=== PATIENT | female | born 1985 | race Caucasian/White ===

== ENCOUNTER 2017-03-22 11:50 | Emergency (ER) | payer OTHER ==
[~2017-03-22] VITALS: Ht 162.6 cm; Wt 71.5 kg
[2017-03-22 11:51] VITALS: BP 113/72; PULSE 97; RESP 18; TEMP 98.2; O2SAT 98
[2017-03-22] MEDS ORDERED: OXYC1TAB35 PO (14:13)
[2017-03-22] MEDS ORDERED: TRAM50 PO (14:13)
--- NOTE | 2017-03-22 14:23 | PD ---
HPI Chief Complaint: Injury Time Seen by Provider: 13:24 Travel History International Travel<30 days: No Contact w/Intl Traveler<30days: No Traveled to known affect area: No History of Present Illness HPI 32-year-old female that presents to the ED for evaluation of possible MRI. Per patient she was sent here by [facility] for evaluation. Apparently patient sustained an injury last week and was seen at [facility]. Patient had x- rays of the hip and knee that show no sign of bony injury but it allergic to have a ligamental injury. Per patient she is having difficulty extending the hip and is currently using crutches and a knee immobilizer. Per patient she has a history of blood clots and she was seen in the [facility] and told to come here for further evaluation and possible MRI for blood clots. Patient states that she's been trying to follow with orthopedic doctor that she's been unsuccessful stating that the doctor that the provided at the other hospital would not see her because of her insurance. She is trying to get to see another one but that won't be able to see her until April. Apparently the facility clinic has been trying to order an MRI for her but he might take a week. Apparently patient has been having some bruising and swelling under were concerned that she might have a DVT. Per patient currently her pain is minimal 2 out of 10 but she did took a Percocet here. She denies any other medical issues. No numbness, tingling, weakness. Per patient she denies this feeling like a blood clot. She is not sure what to do next. PFSH Social History Alcohol Use: No Tobacco Use: No Substance Use: No Allergies-Medications (Allergen,Severity, Reaction): Coded Allergies: Sulfa (Sulfonamide Antibiotics) (Verified Allergy, Severe, RASH, 03/22/17) Reported Meds & Prescriptions Reported Meds & Active Scripts Active Diclofenac Sodium DR (Diclofenac Sodium) 75 Mg Tabdr 75 Mg PO BID PRN Reported Ultram (Tramadol HCl) 50 Mg Tab 50 Mg PO Q6H PRN Oxycodone-Acetaminophen 7.5-325 mg Tab 1 Tab PO Q6H PRN Review of Systems Except as stated in HPI: all other systems reviewed are Neg Physical Exam Narrative GENERAL: SKIN: Warm and dry. HEAD: Atraumatic. Normocephalic. EYES: Pupils equal and round. No scleral icterus. No injection or drainage. ENT: No nasal bleeding or discharge. Mucous membranes pink and moist. NECK: Trachea midline. No JVD. CARDIOVASCULAR: Regular rate and rhythm. RESPIRATORY: No accessory muscle use. Clear to auscultation. Breath sounds equal bilaterally. GASTROINTESTINAL: Abdomen soft, non-tender, nondistended. Hepatic and splenic margins not palpable. MUSCULOSKELETAL: Extremities without clubbing, cyanosis, or edema. No obvious deformities. Full range of motion of the upper extremities with no pain. Full range of motion of left lower extremity. Patient does have a knee immobilizer and also with pain can extend the right leg. Patient has good sensation. Some minimal bruising noted. Most of the pain appears to be in the hip area. Around the tight muscles. NEUROLOGICAL: Awake and alert. No obvious cranial nerve deficits. Motor grossly within normal limits. Five out of 5 muscle strength in the arms and legs. Normal speech. PSYCHIATRIC: Appropriate mood and affect; insight and judgment normal. Data Data Last Documented VS Vital Signs Date Time Temp Pulse Resp B/P (MAP) Pulse Ox O2 Delivery O2 Flow Rate FiO2 03/22/17 11:51 98.2 97 18 113/72 (86) 98 Room Air Orders Orders Us Leg Venous Doppler (03/22/17 ) MDM Medical Decision Making Medical Screen Exam Complete: Yes Emergency Medical Condition: Yes Medical Record Reviewed: Yes Differential Diagnosis Muscle strain versus muscle spasm versus acute on chronic pain versus ligamental injury versus DVT Narrative Course 32-year-old female that presents to the ED for evaluation of possible MRI. Patient was properly examined and was found to have signs and symptoms which appear to be consistent with muscle scleral injury. I do not see any need for emergent MRI at this time. Unclear as to why they sent her here but it seems like she probably was sent here for ultrasound as patient does have pain and bruising on the medial aspect of her right leg and concern for DVT. Did offer MRI but I do not recommended at this time as he does not appear to be emergent. Patient agrees with this. They recommend ultrasound to rule out DVT as this will be more concerning . I think that this may be more related to muscle. Patient agrees with this plan. Ultrasound was ordered. Before patient could have the ultrasound she decided that she needed to go take care of her kids. At this time patient was told that we cannot tell her she has a blood clot. She understands this states that she has to go pick up driver her kids.. She was told to follow with PCP and or orthopedic doctor. At this time I recommend that she follows with orthopedic doctor. She was given prescriptions for anti- inflammatories. She was told to continue taking her medications as prescribed. I gave her a prescription for Zofran to cover for nausea from the Percocet that she was given. Strongly recommend follow with orthopedic doctor to see whether she needs the MRI she might not even needed and all she might require is physical therapy and pain management. Told to follow with PCP. See ED if worsening symptoms. Given name of orthopedic doctors. Diagnosis Primary Impression: Leg pain, right Referrals: Aníbal Romano MD, J. Richard Richard MD Silas, Scott I. MD Patient Instructions: General Instructions Additional Instructions: Take medications as prescribed. Follow with PCP or orthopedic doctor.. See ED worsening symptoms. Med/Other Pt SpecificInfo: Prescription(s) given Scripts Diclofenac Sodium DR (Diclofenac Sodium DR) 75 Mg Tabdr 75 MG PO BID Y for PAIN SCALE 1 TO 10, #20 TAB 0 Refills Prov: Noe Nielson MD 03/22/17 Disposition: 01 DISCHARGE HOME Condition: Stable Jesus Romano Mar 22, 2017 14:23
[2017-03-22] MEDS ORDERED: DICL75TA PO (14:25)
== END 2017-03-22 14:51 | disposition home or self-care (01) ==
LOC: NEPK 11:50
DX: M79.604 Pain in right leg (principal)
CPT/HCPCS: 99283